=== PATIENT | female | born 1985 | race Caucasian/White ===

== ENCOUNTER 2018-06-20 11:28 | Inpatient (IN) | payer BC ==
[~2018-06-20] VITALS: Ht 177.8 cm; Wt 104.5 kg
[2018-06-20 12:14] LABS: BASOPHILS % (AUTO) 0.2 % (0-1); EOSINOPHILS % (AUTO) 0.2 % (0-6); HEMATOCRIT 42.4 % (35.0-45.0); HEMOGLOBIN 14.5 g/dl (12.0-16.0); LYMPHOCYTES # (AUTO) 3.2 X10'3 (1.1-4.8); LYMPHOCYTES % (AUTO) 19.1 % (21-51); MEAN CORPUSCULAR HEMOGLOBIN 31.5 PG (27.0-31.0); MEAN CORPUSCULAR HGB CONC 34.2 g/dL (33.0-36.5); MEAN CORPUSCULAR VOLUME 92.2 FL (78-98); MEAN PLATELET VOLUME 9.4 FL (7.4-10.4); MONOCYTES # (AUTO) 1.2 X10'3 (0-0.9); NEUTROPHILS # (AUTO) 12.4 X10'3 (1.8-7.7); NEUTROPHILS % (AUTO) 73.5 % (42-75); PLATELET COUNT 299 X10'3 (140-440); RED CELL DISTRIBUTION WIDTH 12.9 % (11.5-14.5); WHITE BLOOD COUNT 16.9 X10'3 (4.5-11.0)
[2018-06-20] MEDS ORDERED: morphine 4 MG/ML inj SYRINge IV ONE (12:30)
[2018-06-20] MEDS ORDERED: normal saline 1000ML IV soln IVB ONE ×2 (12:30→14:30)
[2018-06-20 12:39] LABS: ALANINE AMINOTRANSFERASE 539 U/L (12-78); ALBUMIN 3.9 G/DL (3.4-5.0); ALKALINE PHOSPHATASE 108 IU/L (46-116); ANION GAP 13 (8-16); BILIRUBIN,TOTAL 0.5 MG/DL (0.1-1.0); BLOOD UREA NITROGEN 17 MG/DL (7-18); BUN/CREATININE RATIO 19.5 (6.6-38.0); CALCIUM 9.1 MG/DL (8.5-10.1); CHLORIDE 103 MMOL/L (99-107); CREATININE 0.87 MG/DL (0.40-0.90); GLUCOSE 111 MG/DL (70-104); POTASSIUM 3.9 MMOL/L (3.5-5.1); SODIUM 138 MMOL/L (135-145); TOTAL CARBON DIOXIDE 21.6 MMOL/L (24-32); eGFR 75 ML/MIN
--- NOTE | 2018-06-20 12:41 | NUR ---
Pt offered morphine, but she refused since she is . Notified Dr Hightower who ordered tylenol. Pt refused that as well.
[2018-06-20 12:49] LABS: CLARITY,URINE CLOUDY (Clear); GLUCOSE, URINE NEGATIVE (Neg); KETONES,URINE TRACE mg/dl (Neg); LEUKOCYTE ESTERASE ,URINE NEGATIVE (Neg); OCCULT BLOOD,URINE LARGE (Neg); PH,URINE 6.5 (4.8-8.0); PROTEIN,URINE >=300 mg/dl (Neg)
[2018-06-20 12:50] LABS: UA COLLECTION TYPE CLN CATCH MIDSTREAM; URINE HCG NEGATIVE (NEG)
[2018-06-20 12:51] LABS: COLOR,URINE Amber (Yellow)
[2018-06-20 12:52] LABS: NITRITES, URINE UNABLE TO PERFORM (Neg)
[2018-06-20 12:58] LABS: AMORPHOUS URATES 2+
[2018-06-20 12:59] LABS: BACTERIA,URINE 1+ /HPF (Neg); RBC,URINE 0-2 /HPF (0-2); SQUAMOUS EPITHELIAL CELL,UR FEW /LPF (FEW); WBC,URINE 0-4 /HPF (0-4)
[2018-06-20 13:03] LABS: ASPARTATE AMINO TRANSFERASE 2350 U/L (10-37)
[2018-06-20] MEDS ORDERED: NO HOME MEDS (14:59)
[2018-06-20] MEDS ORDERED: magnesium 2GM in 50ml NS 50 ML IV PRN (15:00)
[2018-06-20] MEDS ORDERED: mag hydrox/Alum hydrox/simeth 30ml oral suspension PO PRN (15:00)
[2018-06-20] MEDS ORDERED: magnesium hydroxide 30ml (MOM) UD suspension PO PRN (15:00)
[2018-06-20] MEDS ORDERED: CefTRIAXone/D5W-Rocephin 1gm 50 ML IV SCH (15:00)
[2018-06-20] MEDS ORDERED: potassium Cl 40MEQ/NS 500ml 500 ML IV PRN ×2 (15:00)
[2018-06-20] MEDS ORDERED: morphine 2 MG/ML inj. syringe IV PRN ×2 (15:00)
[2018-06-20] MEDS ORDERED: magnesium Cl slow-release 64mg tablet PO PRN (15:00)
[2018-06-20] MEDS ORDERED: potassium Cl 20 mEq SR tablet PO PRN ×2 (15:00)
[2018-06-20] MEDS ORDERED: ondansetron/PF 4mg/2ml inj IV PRN (15:00)
[2018-06-20] MEDS ORDERED: diphenhydrAMINE 25mg capsule PO PRN (15:00)
[2018-06-20] MEDS ORDERED: magnesium 4gm in 100ml NS 100 ML IV PRN (15:00)
[2018-06-20] MEDS ORDERED: acetaminophen 325mg tablet PO PRN ×2 (15:00)
[2018-06-20] MEDS: K and/or MAG REPLACEMENT MC SCH (15:00)
[2018-06-20] MEDS ORDERED: HYDROcodone/acetaminophen 10/325mg tab PO PRN (15:00)
[2018-06-20] MEDS ORDERED: HYDROcodone/acetaminophen 5mg/325mg tablet PO PRN (15:00)
[2018-06-20] MEDS: normal saline 1000ml 1,000 ML IV SCH ×2 (15:13→20:09)
--- NOTE | 2018-06-20 15:50 | NUR ---
Pt refused her contrast as she is unable to breastfeed x [address] Lamar aware.
[2018-06-20 16:01] LABS: HEMOGLOBIN A1C 5.2 % (4.5-6.2)
--- NOTE | 2018-06-20 17:57 | NUR ---
received report from Zena.
[2018-06-20 18:00] VITALS: BP 130/65
--- NOTE | 2018-06-20 18:00 | NUR ---
Patient in room [facility] 4022. I have received report from YADIRA Campuzano and had the opportunity to ask questions and assume patient care.
--- NOTE | 2018-06-20 18:10 | NUR ---
report given to Mima Coronado
--- NOTE | 2018-06-20 18:14 | NUR ---
Received report from lui colón
[2018-06-20] MEDS ORDERED: heparin, porcine 5000 units/ml vial SQ SCH (20:00)
[2018-06-20 22:00] VITALS: BP 132/72
[2018-06-21] MEDS: normal saline 1000ml 1,000 ML IV SCH ×6 (01:25→22:01)
[2018-06-21 04:01] LABS: CLARITY,URINE CLEAR (Clear); COLOR,URINE YELLOW (Yellow); GLUCOSE, URINE NEGATIVE (Neg); KETONES,URINE NEGATIVE (Neg); LEUKOCYTE ESTERASE ,URINE NEGATIVE (Neg); NITRITES, URINE NEGATIVE (Neg); OCCULT BLOOD,URINE LARGE (Neg); PH,URINE 5.5 (4.8-8.0); PROTEIN,URINE 100 mg/dl (Neg); UROBILINOGEN,URINE 0.2 E.U/dL (0.2-1.0)
[2018-06-21 04:10] LABS: UA COLLECTION TYPE NON-SPECIFIED
[2018-06-21 04:11] LABS: BACTERIA,URINE NONE SEEN /HPF (Neg); RBC,URINE 0-2 /HPF (0-2); SQUAMOUS EPITHELIAL CELL,UR FEW /LPF (FEW); WBC,URINE NONE SEEN /HPF (0-4)
[2018-06-21 05:54] LABS: BASOPHILS % (AUTO) 0.3 % (0-1); EOSINOPHILS # (AUTO) 0.3 X10'3 (0-0.9); HEMATOCRIT 37.6 % (35.0-45.0); HEMOGLOBIN 12.6 g/dl (12.0-16.0); LYMPHOCYTES # (AUTO) 3.3 X10'3 (1.1-4.8); LYMPHOCYTES % (AUTO) 25.2 % (21-51); MEAN CORPUSCULAR HEMOGLOBIN 31.5 PG (27.0-31.0); MEAN CORPUSCULAR HGB CONC 33.5 g/dL (33.0-36.5); MEAN PLATELET VOLUME 9.8 FL (7.4-10.4); MONOCYTES % (AUTO) 7.6 % (2-12); NEUTROPHILS # (AUTO) 8.4 X10'3 (1.8-7.7); NEUTROPHILS % (AUTO) 64.9 % (42-75); PLATELET COUNT 234 X10'3 (140-440); RED CELL DISTRIBUTION WIDTH 12.9 % (11.5-14.5)
[2018-06-21 06:00] VITALS: BP 126/72
--- NOTE | 2018-06-21 06:20 | NUR ---
Patient in room [facility] 4022. I have received report from YADIRA Guillermo and had the opportunity to ask questions and assume patient care.
--- NOTE | 2018-06-21 06:31 | NUR ---
Problems reprioritized. Patient report given, questions answered & plan of care reviewed with YADIRA Aguillon.
[2018-06-21 06:36] LABS: ALANINE AMINOTRANSFERASE 621 U/L (12-78); ALBUMIN/GLOBULIN RATIO 0.8 (1.1-1.5); ALKALINE PHOSPHATASE 99 IU/L (46-116); ANION GAP 11 (8-16); BILIRUBIN,TOTAL 0.2 MG/DL (0.1-1.0); BLOOD UREA NITROGEN 14 MG/DL (7-18); BUN/CREATININE RATIO 18.7 (6.6-38.0); CALCIUM 8.6 MG/DL (8.5-10.1); CHLORIDE 107 MMOL/L (99-107); CHOL/HDL RATIO 2.6 (0.00-4.99); CHOLESTEROL 150 MG/DL (0-200); CREATININE 0.75 MG/DL (0.40-0.90); GLUCOSE 98 MG/DL (70-104); HDL CHOLESTEROL 57 MG/DL (35-60); LDL CHOLESTEROL 82 MG/DL (50-100); MAGNESIUM 1.8 MG/DL (1.5-2.4); PHOSPHORUS 3.6 MG/DL (2.3-4.5); SODIUM 140 MMOL/L (135-145); TOTAL CARBON DIOXIDE 22.3 MMOL/L (24-32); TOTAL PROTEIN 6.6 G/DL (6.4-8.2); TRIGLYCERIDES 60 MG/DL (20-135); eGFR 90 ML/MIN
[2018-06-21] MEDS: K and/or MAG REPLACEMENT MC SCH (08:00)
[2018-06-21 08:16] LABS: ASPARTATE AMINO TRANSFERASE 2413 U/L (10-37)
[2018-06-21 08:21] LABS: CREATINE KINASE > 100000 U/L (26-192)
[2018-06-21 10:00] VITALS: BP 123/67
[2018-06-21 18:00] VITALS: BP 108/71
--- NOTE | 2018-06-21 18:21 | NUR ---
Problems reprioritized. Patient report given, questions answered & plan of care reviewed with Erika Mart RN.
[2018-06-21 22:00] VITALS: BP 119/73
[2018-06-22] MEDS: normal saline 1000ml 1,000 ML IV SCH ×6 (03:05→22:08)
[2018-06-22 06:00] VITALS: BP 129/67
--- NOTE | 2018-06-22 06:20 | NUR ---
Patient in room [facility] 4022. I have received report from Erika Mart RN and had the opportunity to ask questions and assume patient care.
--- NOTE | 2018-06-22 06:27 | NUR ---
Problems reprioritized. Patient report given Henna MAY, questions answered & plan of care reviewed with .
[2018-06-22 06:39] LABS: BASOPHILS % (AUTO) 0.3 % (0-1); EOSINOPHILS # (AUTO) 0.2 X10'3 (0-0.9); EOSINOPHILS % (AUTO) 1.6 % (0-6); HEMATOCRIT 39.2 % (35.0-45.0); HEMOGLOBIN 13.1 g/dl (12.0-16.0); LYMPHOCYTES # (AUTO) 2.4 X10'3 (1.1-4.8); LYMPHOCYTES % (AUTO) 17.9 % (21-51); MEAN CORPUSCULAR HEMOGLOBIN 31.1 PG (27.0-31.0); MEAN CORPUSCULAR HGB CONC 33.5 g/dL (33.0-36.5); MEAN CORPUSCULAR VOLUME 92.8 FL (78-98); MEAN PLATELET VOLUME 9.6 FL (7.4-10.4); MONOCYTES # (AUTO) 1.1 X10'3 (0-0.9); MONOCYTES % (AUTO) 7.9 % (2-12); NEUTROPHILS # (AUTO) 9.8 X10'3 (1.8-7.7); NEUTROPHILS % (AUTO) 72.3 % (42-75); PLATELET COUNT 246 X10'3 (140-440); RED BLOOD COUNT 4.22 X10'6 (4.20-5.60); RED CELL DISTRIBUTION WIDTH 12.5 % (11.5-14.5); WHITE BLOOD COUNT 13.6 X10'3 (4.5-11.0)
[2018-06-22 06:58] LABS: ALANINE AMINOTRANSFERASE 798 U/L (12-78); ALBUMIN 3.2 G/DL (3.4-5.0); ALBUMIN/GLOBULIN RATIO 0.8 (1.1-1.5); ALKALINE PHOSPHATASE 98 IU/L (46-116); ANION GAP 9 (8-16); BILIRUBIN,TOTAL 0.4 MG/DL (0.1-1.0); BLOOD UREA NITROGEN 12 MG/DL (7-18); BUN/CREATININE RATIO 17.4 (6.6-38.0); CHLORIDE 105 MMOL/L (99-107); CREATININE 0.69 MG/DL (0.40-0.90); GLUCOSE 92 MG/DL (70-104); MAGNESIUM 1.9 MG/DL (1.5-2.4); PHOSPHORUS 4.2 MG/DL (2.3-4.5); SODIUM 139 MMOL/L (135-145); TOTAL CARBON DIOXIDE 25.2 MMOL/L (24-32); TOTAL PROTEIN 7.1 G/DL (6.4-8.2); eGFR > 90 ML/MIN
[2018-06-22 07:54] LABS: ASPARTATE AMINO TRANSFERASE 2838 U/L (10-37)
[2018-06-22] MEDS: K and/or MAG REPLACEMENT MC SCH (08:00)
[2018-06-22 10:00] VITALS: BP 126/87
[2018-06-22] MEDS: heparin, porcine 5000 units/ml vial SQ SCH ×2 (11:27→20:21)
[2018-06-22 11:41] LABS: PARTIAL THROMBOPLASTIN TIME 28 SECONDS (22-32)
--- NOTE | 2018-06-22 13:30 | NUR ---
Spoke with , new order received to increase fluids to 400 mLs/hr.
[2018-06-22 15:08] LABS: HBSAG SCREEN Negative (Negative); HEP A AB, IGM Negative (Negative); HEP B CORE AB, IGM Negative (Negative); HEPATITIS C ANTIBODY <0.1 s/co ratio (0.0-0.9)
--- NOTE | 2018-06-22 16:50 | NUR ---
shaunna WHEELER regarding light urine, fluids at 400 mLs/hr. New order received to decrease fluids to 150 mLs/hr.
--- NOTE | 2018-06-22 16:50 | NUR ---
PAGER ID: [phone] MESSAGE: re: Po Merino [id number], pt's urine is much better, light yellow now, how long would you like fluids at 400 mLs/hr? Thank you, Henna elkins ortho, # [phone],
[2018-06-22 18:00] VITALS: BP 138/84
--- NOTE | 2018-06-22 18:29 | NUR ---
Problems reprioritized. Patient report given, questions answered & plan of care reviewed with Ngoc MAY.
--- NOTE | 2018-06-22 18:40 | NUR ---
Patient in room [facility]TH[facility] 4022. I have received report from Henna MAY and had the opportunity to ask questions and assume patient care.
[2018-06-22 22:00] VITALS: BP 126/73
--- NOTE | 2018-06-22 23:01 | NUR ---
Walked patient to bathroom 2 person FWW and gait belt. Patient stiff at first but did very well. Able to walk with 1 person back to bed. Patient very happy with being able to walk.
[2018-06-23] MEDS: normal saline 1000ml 1,000 ML IV SCH ×4 (04:18→20:05)
[2018-06-23 06:00] VITALS: BP 109/61
--- NOTE | 2018-06-23 06:34 | NUR ---
Problems reprioritized. Patient report given, questions answered & plan of care reviewed with Cecile MAY.
[2018-06-23 07:38] LABS: BASOPHILS # (AUTO) 0.1 X10'3 (0-0.2); BASOPHILS % (AUTO) 0.4 % (0-1); EOSINOPHILS # (AUTO) 0.2 X10'3 (0-0.9); EOSINOPHILS % (AUTO) 1.8 % (0-6); HEMATOCRIT 37.5 % (35.0-45.0); HEMOGLOBIN 12.6 g/dl (12.0-16.0); LYMPHOCYTES # (AUTO) 2.7 X10'3 (1.1-4.8); LYMPHOCYTES % (AUTO) 20.4 % (21-51); MEAN CORPUSCULAR HEMOGLOBIN 31.3 PG (27.0-31.0); MEAN CORPUSCULAR HGB CONC 33.5 g/dL (33.0-36.5); MEAN CORPUSCULAR VOLUME 93.5 FL (78-98); MEAN PLATELET VOLUME 9.6 FL (7.4-10.4); MONOCYTES # (AUTO) 1.1 X10'3 (0-0.9); MONOCYTES % (AUTO) 8.2 % (2-12); NEUTROPHILS % (AUTO) 69.2 % (42-75); PLATELET COUNT 255 X10'3 (140-440); RED BLOOD COUNT 4.01 X10'6 (4.20-5.60); RED CELL DISTRIBUTION WIDTH 12.6 % (11.5-14.5); WHITE BLOOD COUNT 13.1 X10'3 (4.5-11.0)
[2018-06-23] MEDS: K and/or MAG REPLACEMENT MC SCH (08:00)
[2018-06-23 08:03] LABS: ALANINE AMINOTRANSFERASE 846 U/L (12-78); ALBUMIN 2.9 G/DL (3.4-5.0); ALBUMIN/GLOBULIN RATIO 0.7 (1.1-1.5); ALKALINE PHOSPHATASE 100 IU/L (46-116); ANION GAP 9 (8-16); BILIRUBIN,TOTAL 0.4 MG/DL (0.1-1.0); BLOOD UREA NITROGEN 12 MG/DL (7-18); BUN/CREATININE RATIO 17.9 (6.6-38.0); CALCIUM 8.7 MG/DL (8.5-10.1); CHLORIDE 103 MMOL/L (99-107); CREATININE 0.67 MG/DL (0.40-0.90); GLUCOSE 96 MG/DL (70-104); MAGNESIUM 1.7 MG/DL (1.5-2.4); PHOSPHORUS 3.9 MG/DL (2.3-4.5); SODIUM 136 MMOL/L (135-145); TOTAL CARBON DIOXIDE 23.6 MMOL/L (24-32); eGFR > 90 ML/MIN
[2018-06-23 08:28] LABS: CREATINE KINASE > 100000 U/L (26-192)
[2018-06-23 08:29] LABS: ASPARTATE AMINO TRANSFERASE 2724 U/L (10-37)
[2018-06-23] MEDS: heparin, porcine 5000 units/ml vial SQ SCH ×2 (09:31→20:05)
[2018-06-23 18:30] VITALS: BP 113/60
[2018-06-23 22:00] VITALS: BP 115/69
[2018-06-24] MEDS: normal saline 1000ml 1,000 ML IV SCH ×5 (01:10→23:50)
[2018-06-24 05:21] LABS: BASOPHILS % (AUTO) 0.3 % (0-1); EOSINOPHILS # (AUTO) 0.4 X10'3 (0-0.9); EOSINOPHILS % (AUTO) 2.9 % (0-6); HEMATOCRIT 36.9 % (35.0-45.0); HEMOGLOBIN 12.5 g/dl (12.0-16.0); LYMPHOCYTES # (AUTO) 2.7 X10'3 (1.1-4.8); LYMPHOCYTES % (AUTO) 22.1 % (21-51); MEAN CORPUSCULAR HEMOGLOBIN 31.5 PG (27.0-31.0); MEAN CORPUSCULAR HGB CONC 33.7 g/dL (33.0-36.5); MEAN CORPUSCULAR VOLUME 93.3 FL (78-98); MEAN PLATELET VOLUME 9.7 FL (7.4-10.4); MONOCYTES # (AUTO) 0.9 X10'3 (0-0.9); MONOCYTES % (AUTO) 7.7 % (2-12); NEUTROPHILS # (AUTO) 8.3 X10'3 (1.8-7.7); PLATELET COUNT 256 X10'3 (140-440); RED BLOOD COUNT 3.96 X10'6 (4.20-5.60); RED CELL DISTRIBUTION WIDTH 12.6 % (11.5-14.5); WHITE BLOOD COUNT 12.4 X10'3 (4.5-11.0)
[2018-06-24 06:00] VITALS: BP 111/66
[2018-06-24 06:03] LABS: ALANINE AMINOTRANSFERASE 824 U/L (12-78); ALBUMIN 2.8 G/DL (3.4-5.0); ALBUMIN/GLOBULIN RATIO 0.7 (1.1-1.5); ALKALINE PHOSPHATASE 93 IU/L (46-116); ANION GAP 7 (8-16); BILIRUBIN,TOTAL 0.4 MG/DL (0.1-1.0); BLOOD UREA NITROGEN 11 MG/DL (7-18); BUN/CREATININE RATIO 16.7 (6.6-38.0); CALCIUM 8.8 MG/DL (8.5-10.1); CHLORIDE 105 MMOL/L (99-107); CREATININE 0.66 MG/DL (0.40-0.90); GLUCOSE 85 MG/DL (70-104); MAGNESIUM 1.7 MG/DL (1.5-2.4); PHOSPHORUS 4.3 MG/DL (2.3-4.5); SODIUM 138 MMOL/L (135-145); TOTAL CARBON DIOXIDE 25.9 MMOL/L (24-32); TOTAL PROTEIN 6.6 G/DL (6.4-8.2); eGFR > 90 ML/MIN
[2018-06-24 06:17] LABS: ASPARTATE AMINO TRANSFERASE 2130 U/L (10-37)
[2018-06-24 06:50] LABS: CREATINE KINASE 67412 U/L (26-192)
[2018-06-24] MEDS: K and/or MAG REPLACEMENT MC SCH (08:00)
[2018-06-24 10:35] VITALS: BP 126/73
[2018-06-24] MEDS: heparin, porcine 5000 units/ml vial SQ SCH ×2 (10:51→20:39)
[2018-06-24 18:00] VITALS: BP 106/51
--- NOTE | 2018-06-24 18:09 | NUR ---
Report to Courtney MAY
[2018-06-24 22:00] VITALS: BP 115/51
[2018-06-25 06:05] LABS: BASOPHILS # (AUTO) 0.1 X10'3 (0-0.2); BASOPHILS % (AUTO) 0.4 % (0-1); EOSINOPHILS # (AUTO) 0.3 X10'3 (0-0.9); EOSINOPHILS % (AUTO) 2.5 % (0-6); HEMATOCRIT 36.4 % (35.0-45.0); HEMOGLOBIN 12.4 g/dl (12.0-16.0); LYMPHOCYTES # (AUTO) 2.4 X10'3 (1.1-4.8); LYMPHOCYTES % (AUTO) 19.3 % (21-51); MEAN CORPUSCULAR HEMOGLOBIN 31.8 PG (27.0-31.0); MEAN CORPUSCULAR VOLUME 93.5 FL (78-98); MEAN PLATELET VOLUME 9.4 FL (7.4-10.4); MONOCYTES % (AUTO) 7.8 % (2-12); NEUTROPHILS # (AUTO) 8.7 X10'3 (1.8-7.7); PLATELET COUNT 274 X10'3 (140-440); RED BLOOD COUNT 3.89 X10'6 (4.20-5.60); RED CELL DISTRIBUTION WIDTH 12.5 % (11.5-14.5); WHITE BLOOD COUNT 12.4 X10'3 (4.5-11.0)
[2018-06-25 06:40] VITALS: BP 105/57
[2018-06-25 06:56] LABS: ALANINE AMINOTRANSFERASE 710 U/L (12-78); ALBUMIN 2.7 G/DL (3.4-5.0); ALBUMIN/GLOBULIN RATIO 0.7 (1.1-1.5); ALKALINE PHOSPHATASE 98 IU/L (46-116); ANION GAP 7 (8-16); BILIRUBIN,TOTAL 0.2 MG/DL (0.1-1.0); BLOOD UREA NITROGEN 14 MG/DL (7-18); BUN/CREATININE RATIO 18.4 (6.6-38.0); CALCIUM 8.7 MG/DL (8.5-10.1); CHLORIDE 104 MMOL/L (99-107); CREATININE 0.76 MG/DL (0.40-0.90); GLUCOSE 98 MG/DL (70-104); MAGNESIUM 1.6 MG/DL (1.5-2.4); PHOSPHORUS 3.8 MG/DL (2.3-4.5); POTASSIUM 4.1 MMOL/L (3.5-5.1); SODIUM 136 MMOL/L (135-145); TOTAL CARBON DIOXIDE 25.3 MMOL/L (24-32); TOTAL PROTEIN 6.5 G/DL (6.4-8.2); eGFR 88 ML/MIN
[2018-06-25 07:22] LABS: ASPARTATE AMINO TRANSFERASE 1237 U/L (10-37); CREATINE KINASE 28580 U/L (26-192)
[2018-06-25] MEDS: K and/or MAG REPLACEMENT MC SCH (07:24)
[2018-06-25] MEDS: heparin, porcine 5000 units/ml vial SQ SCH ×2 (07:27→19:56)
[2018-06-25] MEDS: normal saline 1000ml 1,000 ML IV SCH ×3 (07:27→22:34)
[2018-06-25 10:47] VITALS: BP 116/72
--- NOTE | 2018-06-25 12:09 | NUR ---
Initial: Pt admit with acute rhabdomyolysis secondary to extensive abrupt exercise regimen. CK level is still significantly elevated although is coming down now along with myoglobin per MD progress notes. Pt with increased nutrient needs r/t 14-month old child. Pt currently on a regular diet with documented 75-100% likely meeting nutrient needs to support . LBM 06/24. No nutrition diagnosis at this time. Will continue to follow. Recommendations: 1) Continue with regular diet 2) Monitor need for ONS 3) Wt per rx Addendum: 06/25/18 at [address] Amended: Links added.
[2018-06-25 18:00] VITALS: BP 135/67
[2018-06-25 22:00] VITALS: BP 107/59
[2018-06-26 06:00] VITALS: BP 95/51
--- NOTE | 2018-06-26 06:05 | NUR ---
Patient in room [facility] 4022. I have received report from BRIANDA MAY and had the opportunity to ask questions and assume patient care.
--- NOTE | 2018-06-26 06:10 | NUR ---
Problems reprioritized. Patient report given, questions answered & plan of care reviewed with YADIRA MOLINA.
[2018-06-26 07:12] LABS: BASOPHILS # (AUTO) 0.1 X10'3 (0-0.2); BASOPHILS % (AUTO) 0.4 % (0-1); EOSINOPHILS # (AUTO) 0.3 X10'3 (0-0.9); EOSINOPHILS % (AUTO) 2.6 % (0-6); HEMATOCRIT 39.6 % (35.0-45.0); HEMOGLOBIN 13.2 g/dl (12.0-16.0); LYMPHOCYTES # (AUTO) 2.6 X10'3 (1.1-4.8); LYMPHOCYTES % (AUTO) 21.3 % (21-51); MEAN CORPUSCULAR HEMOGLOBIN 31.3 PG (27.0-31.0); MEAN CORPUSCULAR HGB CONC 33.2 g/dL (33.0-36.5); MEAN CORPUSCULAR VOLUME 94.1 FL (78-98); MEAN PLATELET VOLUME 9.1 FL (7.4-10.4); MONOCYTES # (AUTO) 0.8 X10'3 (0-0.9); MONOCYTES % (AUTO) 6.4 % (2-12); NEUTROPHILS # (AUTO) 8.5 X10'3 (1.8-7.7); NEUTROPHILS % (AUTO) 69.3 % (42-75); PLATELET COUNT 308 X10'3 (140-440); RED BLOOD COUNT 4.21 X10'6 (4.20-5.60); RED CELL DISTRIBUTION WIDTH 12.8 % (11.5-14.5); WHITE BLOOD COUNT 12.3 X10'3 (4.5-11.0)
[2018-06-26] MEDS: heparin, porcine 5000 units/ml vial SQ SCH ×2 (07:23→21:31)
[2018-06-26] MEDS: normal saline 1000ml 1,000 ML IV SCH ×4 (07:23→19:38)
[2018-06-26] MEDS: K and/or MAG REPLACEMENT MC SCH (08:00)
[2018-06-26 08:05] LABS: ALANINE AMINOTRANSFERASE 604 U/L (12-78); ALBUMIN 2.8 G/DL (3.4-5.0); ALBUMIN/GLOBULIN RATIO 0.7 (1.1-1.5); ALKALINE PHOSPHATASE 107 IU/L (46-116); ANION GAP 9 (8-16); ASPARTATE AMINO TRANSFERASE 743 U/L (10-37); BILIRUBIN,TOTAL 0.1 MG/DL (0.1-1.0); BLOOD UREA NITROGEN 14 MG/DL (7-18); BUN/CREATININE RATIO 20.9 (6.6-38.0); CALCIUM 9.2 MG/DL (8.5-10.1); CHLORIDE 102 MMOL/L (99-107); CREATININE 0.67 MG/DL (0.40-0.90); GLUCOSE 96 MG/DL (70-104); MAGNESIUM 1.6 MG/DL (1.5-2.4); PHOSPHORUS 3.9 MG/DL (2.3-4.5); SODIUM 137 MMOL/L (135-145); TOTAL CARBON DIOXIDE 26.4 MMOL/L (24-32); TOTAL PROTEIN 6.9 G/DL (6.4-8.2); eGFR > 90 ML/MIN
[2018-06-26 08:22] LABS: CREATINE KINASE 12979 U/L (26-192)
[2018-06-26 10:00] VITALS: BP 118/72
--- NOTE | 2018-06-26 11:20 | NUR ---
Student documentation: I have reviewed all interventions, assessments performed and documented by Carmen Nicholson. Student Medication Administration: For this medication-pass time frame, all medication were reviewed, dispensed, administered and documented per hospital policy by Carmen Nicholson.
--- NOTE | 2018-06-26 16:26 | NUR ---
Student documentation: I have reviewed and agree with all interventions, assessments performed and documented by SN Bhakti.
[2018-06-26 18:00] VITALS: BP 114/69
--- NOTE | 2018-06-26 18:15 | NUR ---
Problems reprioritized. Patient report given, questions answered & plan of care reviewed with VASQUEZ MAY.
[2018-06-26 22:00] VITALS: BP 120/76
[2018-06-27] MEDS: normal saline 1000ml 1,000 ML IV SCH ×4 (04:45→20:10)
[2018-06-27 06:00] VITALS: BP 101/50
--- NOTE | 2018-06-27 06:30 | NUR ---
Patient in room [facility]TH[facility] 4022. I have received report from Kristi MAY and had the opportunity to ask questions and assume patient care.
[2018-06-27] MEDS: heparin, porcine 5000 units/ml vial SQ SCH ×2 (07:38→20:11)
[2018-06-27] MEDS: K and/or MAG REPLACEMENT MC SCH (08:00)
[2018-06-27 10:00] VITALS: BP 111/58
[2018-06-27 10:21] LABS: BASOPHILS % (AUTO) 0.5 % (0-1); EOSINOPHILS # (AUTO) 0.2 X10'3 (0-0.9); EOSINOPHILS % (AUTO) 2.1 % (0-6); HEMATOCRIT 36.1 % (35.0-45.0); HEMOGLOBIN 12.3 g/dl (12.0-16.0); LYMPHOCYTES # (AUTO) 2.2 X10'3 (1.1-4.8); LYMPHOCYTES % (AUTO) 23.4 % (21-51); MEAN CORPUSCULAR HEMOGLOBIN 31.7 PG (27.0-31.0); MEAN CORPUSCULAR HGB CONC 34.1 g/dL (33.0-36.5); MEAN CORPUSCULAR VOLUME 92.9 FL (78-98); MEAN PLATELET VOLUME 9.2 FL (7.4-10.4); MONOCYTES # (AUTO) 0.6 X10'3 (0-0.9); MONOCYTES % (AUTO) 6.6 % (2-12); NEUTROPHILS # (AUTO) 6.3 X10'3 (1.8-7.7); NEUTROPHILS % (AUTO) 67.4 % (42-75); PLATELET COUNT 282 X10'3 (140-440); RED BLOOD COUNT 3.89 X10'6 (4.20-5.60); RED CELL DISTRIBUTION WIDTH 12.7 % (11.5-14.5); WHITE BLOOD COUNT 9.4 X10'3 (4.5-11.0)
[2018-06-27 11:02] LABS: ALANINE AMINOTRANSFERASE 485 U/L (12-78); ALBUMIN 2.6 G/DL (3.4-5.0); ALBUMIN/GLOBULIN RATIO 0.7 (1.1-1.5); ALKALINE PHOSPHATASE 84 IU/L (46-116); ANION GAP 8 (8-16); ASPARTATE AMINO TRANSFERASE 467 U/L (10-37); BILIRUBIN,TOTAL 0.2 MG/DL (0.1-1.0); BLOOD UREA NITROGEN 13 MG/DL (7-18); CALCIUM 8.4 MG/DL (8.5-10.1); CHLORIDE 105 MMOL/L (99-107); CREATININE 0.62 MG/DL (0.40-0.90); GLUCOSE 105 MG/DL (70-104); MAGNESIUM 1.4 MG/DL (1.5-2.4); PHOSPHORUS 3.2 MG/DL (2.3-4.5); POTASSIUM 3.5 MMOL/L (3.5-5.1); SODIUM 139 MMOL/L (135-145); TOTAL CARBON DIOXIDE 25.8 MMOL/L (24-32); TOTAL PROTEIN 6.2 G/DL (6.4-8.2); eGFR > 90 ML/MIN
[2018-06-27 11:35] LABS: CREATINE KINASE 7545 U/L (26-192)
[2018-06-27] MEDS ORDERED: potassium Cl 40MEQ/NS 500ml 500 ML IV PRN ×2 (17:30)
[2018-06-27] MEDS ORDERED: potassium Cl 20 mEq SR tablet PO PRN ×2 (17:30)
[2018-06-27] MEDS: magnesium Cl slow-release 64mg tablet PO PRN (17:38)
[2018-06-27 18:00] VITALS: BP 123/65
--- NOTE | 2018-06-27 18:20 | NUR ---
Patient report given to Princess MAY
[2018-06-27 22:00] VITALS: BP 106/55
[2018-06-28] MEDS: normal saline 1000ml 1,000 ML IV SCH ×5 (00:54→20:54)
--- NOTE | 2018-06-28 06:06 | NUR ---
Problems reprioritized. Patient report given, questions answered & plan of care reviewed with YADIRA Caldwell.
--- NOTE | 2018-06-28 06:26 | NUR ---
I have received patient report from Princess Cadena RN
[2018-06-28 06:29] VITALS: BP 97/54
[2018-06-28] MEDS: magnesium Cl slow-release 64mg tablet PO PRN (07:42)
[2018-06-28] MEDS: heparin, porcine 5000 units/ml vial SQ SCH ×2 (07:42→19:59)
[2018-06-28] MEDS: K and/or MAG REPLACEMENT MC SCH (08:00)
[2018-06-28 09:28] LABS: BASOPHILS # (AUTO) 0.1 X10'3 (0-0.2); BASOPHILS % (AUTO) 0.5 % (0-1); EOSINOPHILS # (AUTO) 0.2 X10'3 (0-0.9); EOSINOPHILS % (AUTO) 1.9 % (0-6); HEMATOCRIT 36.3 % (35.0-45.0); HEMOGLOBIN 12.6 g/dl (12.0-16.0); LYMPHOCYTES # (AUTO) 2.4 X10'3 (1.1-4.8); LYMPHOCYTES % (AUTO) 23.9 % (21-51); MEAN CORPUSCULAR HEMOGLOBIN 32.2 PG (27.0-31.0); MEAN CORPUSCULAR HGB CONC 34.6 g/dL (33.0-36.5); MEAN CORPUSCULAR VOLUME 93.1 FL (78-98); MEAN PLATELET VOLUME 9.6 FL (7.4-10.4); MONOCYTES # (AUTO) 0.7 X10'3 (0-0.9); MONOCYTES % (AUTO) 7.2 % (2-12); NEUTROPHILS # (AUTO) 6.8 X10'3 (1.8-7.7); NEUTROPHILS % (AUTO) 66.5 % (42-75); PLATELET COUNT 305 X10'3 (140-440); RED CELL DISTRIBUTION WIDTH 12.7 % (11.5-14.5); WHITE BLOOD COUNT 10.2 X10'3 (4.5-11.0)
[2018-06-28 10:00] VITALS: BP 132/61
[2018-06-28 10:04] LABS: ALANINE AMINOTRANSFERASE 434 U/L (12-78); ALBUMIN 2.7 G/DL (3.4-5.0); ALBUMIN/GLOBULIN RATIO 0.8 (1.1-1.5); ALKALINE PHOSPHATASE 86 IU/L (46-116); ANION GAP 9 (8-16); ASPARTATE AMINO TRANSFERASE 370 U/L (10-37); BILIRUBIN,TOTAL 0.2 MG/DL (0.1-1.0); BLOOD UREA NITROGEN 12 MG/DL (7-18); CALCIUM 8.7 MG/DL (8.5-10.1); CHLORIDE 104 MMOL/L (99-107); GLUCOSE 86 MG/DL (70-104); MAGNESIUM 1.5 MG/DL (1.5-2.4); PHOSPHORUS 4.1 MG/DL (2.3-4.5); POTASSIUM 3.9 MMOL/L (3.5-5.1); SODIUM 140 MMOL/L (135-145); TOTAL CARBON DIOXIDE 26.7 MMOL/L (24-32); TOTAL PROTEIN 6.2 G/DL (6.4-8.2); eGFR > 90 ML/MIN
[2018-06-28 10:37] LABS: CREATINE KINASE 5490 U/L (26-192)
[2018-06-28 18:00] VITALS: BP 111/54
--- NOTE | 2018-06-28 18:33 | NUR ---
report given to Princess Cadena RN
[2018-06-28 22:00] VITALS: BP 109/66
[2018-06-29] MEDS: normal saline 1000ml 1,000 ML IV SCH ×5 (01:54→22:48)
--- NOTE | 2018-06-29 06:03 | NUR ---
Problems reprioritized. Patient report given, questions answered & plan of care reviewed with YADIRA Caldwell.
--- NOTE | 2018-06-29 06:29 | NUR ---
I have received patient report from Princess Cadena
[2018-06-29 06:30] VITALS: BP 101/64
[2018-06-29] MEDS: K and/or MAG REPLACEMENT MC SCH (08:00)
[2018-06-29] MEDS: heparin, porcine 5000 units/ml vial SQ SCH ×2 (08:35→19:52)
[2018-06-29 09:23] LABS: BASOPHILS % (AUTO) 0.3 % (0-1); EOSINOPHILS # (AUTO) 0.2 X10'3 (0-0.9); HEMATOCRIT 35.8 % (35.0-45.0); LYMPHOCYTES # (AUTO) 2.5 X10'3 (1.1-4.8); LYMPHOCYTES % (AUTO) 27.8 % (21-51); MEAN CORPUSCULAR HEMOGLOBIN 31.4 PG (27.0-31.0); MEAN CORPUSCULAR HGB CONC 33.6 g/dL (33.0-36.5); MEAN CORPUSCULAR VOLUME 93.3 FL (78-98); MEAN PLATELET VOLUME 8.9 FL (7.4-10.4); MONOCYTES # (AUTO) 0.6 X10'3 (0-0.9); MONOCYTES % (AUTO) 6.5 % (2-12); NEUTROPHILS # (AUTO) 5.6 X10'3 (1.8-7.7); NEUTROPHILS % (AUTO) 63.4 % (42-75); PLATELET COUNT 307 X10'3 (140-440); RED BLOOD COUNT 3.83 X10'6 (4.20-5.60); RED CELL DISTRIBUTION WIDTH 12.4 % (11.5-14.5); WHITE BLOOD COUNT 8.9 X10'3 (4.5-11.0)
[2018-06-29 09:39] LABS: ALANINE AMINOTRANSFERASE 407 U/L (12-78); ALBUMIN 2.9 G/DL (3.4-5.0); ALBUMIN/GLOBULIN RATIO 0.8 (1.1-1.5); ALKALINE PHOSPHATASE 87 IU/L (46-116); ANION GAP 8 (8-16); ASPARTATE AMINO TRANSFERASE 268 U/L (10-37); BILIRUBIN,TOTAL 0.3 MG/DL (0.1-1.0); BLOOD UREA NITROGEN 12 MG/DL (7-18); BUN/CREATININE RATIO 18.2 (6.6-38.0); CALCIUM 9.2 MG/DL (8.5-10.1); CHLORIDE 105 MMOL/L (99-107); CREATININE 0.66 MG/DL (0.40-0.90); GLUCOSE 93 MG/DL (70-104); MAGNESIUM 1.7 MG/DL (1.5-2.4); PHOSPHORUS 3.9 MG/DL (2.3-4.5); POTASSIUM 3.8 MMOL/L (3.5-5.1); SODIUM 138 MMOL/L (135-145); TOTAL CARBON DIOXIDE 25.3 MMOL/L (24-32); TOTAL PROTEIN 6.4 G/DL (6.4-8.2); eGFR > 90 ML/MIN
[2018-06-29 09:53] LABS: CREATINE KINASE 4366 U/L (26-192)
[2018-06-29 10:00] VITALS: BP 121/74
[2018-06-29 18:00] VITALS: BP 127/64
--- NOTE | 2018-06-29 18:22 | NUR ---
Patient report given to Ngoc MAY
--- NOTE | 2018-06-29 18:24 | NUR ---
Patient in room [facility] 4022. I have received report from Paulette MAY and had the opportunity to ask questions and assume patient care.
[2018-06-29 22:00] VITALS: BP 115/75
[2018-06-30] MEDS: normal saline 1000ml 1,000 ML IV SCH ×5 (03:48→19:53)
[2018-06-30 06:00] VITALS: BP 93/45
--- NOTE | 2018-06-30 06:00 | NUR ---
Patient in room [facility] 4022. I have received report from and had the opportunity to ask questions and assume patient care from YADIRA James.
--- NOTE | 2018-06-30 06:25 | NUR ---
Problems reprioritized. Patient report given, questions answered & plan of care reviewed with Mary MAY.
[2018-06-30] MEDS: K and/or MAG REPLACEMENT MC SCH (08:00)
--- NOTE | 2018-06-30 08:00 | NUR ---
Electrolyte monitoring/no replacement K or Mg administered r/t 06/29/09 labs draw K: 3.8, M.7. awaiting current lab results
[2018-06-30] MEDS: heparin, porcine 5000 units/ml vial SQ SCH ×2 (08:53→19:53)
[2018-06-30 10:00] VITALS: BP 104/68
[2018-06-30 10:26] LABS: BASOPHILS % (AUTO) 0.4 % (0-1); EOSINOPHILS # (AUTO) 0.2 X10'3 (0-0.9); HEMATOCRIT 36.1 % (35.0-45.0); HEMOGLOBIN 12.3 g/dl (12.0-16.0); LYMPHOCYTES # (AUTO) 2.3 X10'3 (1.1-4.8); LYMPHOCYTES % (AUTO) 25.7 % (21-51); MEAN CORPUSCULAR HEMOGLOBIN 31.7 PG (27.0-31.0); MEAN CORPUSCULAR VOLUME 93.2 FL (78-98); MEAN PLATELET VOLUME 8.8 FL (7.4-10.4); MONOCYTES # (AUTO) 0.5 X10'3 (0-0.9); MONOCYTES % (AUTO) 5.9 % (2-12); NEUTROPHILS # (AUTO) 5.9 X10'3 (1.8-7.7); PLATELET COUNT 304 X10'3 (140-440); RED BLOOD COUNT 3.88 X10'6 (4.20-5.60); RED CELL DISTRIBUTION WIDTH 13.1 % (11.5-14.5); WHITE BLOOD COUNT 8.9 X10'3 (4.5-11.0)
[2018-06-30 10:47] LABS: ALANINE AMINOTRANSFERASE 381 U/L (12-78); ALBUMIN 2.9 G/DL (3.4-5.0); ALBUMIN/GLOBULIN RATIO 0.8 (1.1-1.5); ALKALINE PHOSPHATASE 86 IU/L (46-116); ANION GAP 7 (8-16); ASPARTATE AMINO TRANSFERASE 225 U/L (10-37); BILIRUBIN,TOTAL 0.1 MG/DL (0.1-1.0); BLOOD UREA NITROGEN 11 MG/DL (7-18); BUN/CREATININE RATIO 15.9 (6.6-38.0); CALCIUM 8.6 MG/DL (8.5-10.1); CHLORIDE 104 MMOL/L (99-107); CREATININE 0.69 MG/DL (0.40-0.90); GLUCOSE 108 MG/DL (70-104); MAGNESIUM 1.5 MG/DL (1.5-2.4); PHOSPHORUS 4.1 MG/DL (2.3-4.5); POTASSIUM 3.8 MMOL/L (3.5-5.1); SODIUM 136 MMOL/L (135-145); TOTAL CARBON DIOXIDE 25.1 MMOL/L (24-32); TOTAL PROTEIN 6.5 G/DL (6.4-8.2); eGFR > 90 ML/MIN
[2018-06-30 10:49] LABS: CREATINE KINASE 2857 U/L (26-192)
--- NOTE | 2018-06-30 14:28 | NUR ---
reassessment: Pt PO 50-75% avg meals fluctuating. LBM /. CK down to 2857 from >100k on admit. Continues to receive fluids. Pt breast feeding. Will continue to monitor. Recommendations: 1) Continue with regular diet 2) Monitor need for ONS 3) Wt per rx Addendum: 06/30/18 at [address] Amended: Links added.
[2018-06-30 18:30] VITALS: BP 117/72
--- NOTE | 2018-06-30 18:30 | NUR ---
Assumed care of pt at this time report from Mary MAY.
--- NOTE | 2018-06-30 19:28 | NUR ---
urine documented was from dayshift.
--- NOTE | 2018-06-30 20:42 | NUR ---
Wants to take care of BM at home, plan for dc in am. Addendum: 06/30/18 at 2046 by Kianna Umanzor RN Amended: Links added.
[2018-06-30 21:30] VITALS: BP 105/48
[2018-07-01] MEDS: normal saline 1000ml 1,000 ML IV SCH ×2 (01:37→07:32)
[2018-07-01 05:49] LABS: ALANINE AMINOTRANSFERASE 322 U/L (12-78); ALBUMIN 2.8 G/DL (3.4-5.0); ALBUMIN/GLOBULIN RATIO 0.8 (1.1-1.5); ALKALINE PHOSPHATASE 91 IU/L (46-116); ASPARTATE AMINO TRANSFERASE 152 U/L (10-37); BILIRUBIN,TOTAL 0.1 MG/DL (0.1-1.0); TOTAL PROTEIN 6.1 G/DL (6.4-8.2)
[2018-07-01 05:51] LABS: CREATINE KINASE 2069 U/L (26-192)
[2018-07-01 06:00] VITALS: BP 118/61
--- NOTE | 2018-07-01 06:36 | NUR ---
Report to Mary MAY.
[2018-07-01] MEDS: heparin, porcine 5000 units/ml vial SQ SCH (07:33)
[2018-07-01] MEDS: K and/or MAG REPLACEMENT MC SCH (08:00)
[2018-07-01 10:00] VITALS: BP 127/84
--- NOTE | 2018-07-01 11:52 | NUR ---
Pt DC home. All DC paperwork signed per protocol. VSS, HRR, RR even unlabored. front wheel walker delivered. Pt escorted JUSTO in WC by [facility] staff & family member. DC packet given to patient r/t follow ups appt, Labs and education. Pt & family thanked [facility] staff for her care.
== END 2018-07-01 11:52 | disposition home or self-care (01) | DRG 566 ==
LOC: ER 11:29 → ORTHO 4S 17:51 → CMPBEDREQ 06-23 00:21 → ORTHO 4S 06-24 08:22
PROVIDERS: ADMIT Family Medicine; ATTEND Family Medicine
DX: T79.6XXA Traumatic ischemia of muscle, initial encounter (principal); R74.0 Nonspecific elevation of levels of transaminase and lactic acid dehydrogenase [LDH]; R79.89 Other specified abnormal findings of blood chemistry; Z97.5 Presence of (intrauterine) contraceptive device; Z91.018 Allergy to other foods; Y93.B9 Activity, other involving muscle strengthening exercises
CPT/HCPCS: 36415; 80053; 80061; 80076; 81001; 81025; 82085; 82550; 83036; 83615; 83735; 83874; 84100; 84550; 85025; 85610; 85730; 86705; 86706; 86709; 86803; 87070; 87088; 87340; 96365; 97116; 97161; 97530; 99285; G0378; J0696; J1644; J2270; J7030